=== PATIENT | female | born 1940 | race Caucasian/White ===

== ENCOUNTER 2018-06-08 16:17 | Emergency (ER) | payer MEDICARE, BC, SELFPAY ==
[2018-06-08 16:22] VITALS: BP 140/60; PULSE 71; RESP 18; TEMP 36.5; O2SAT 99; BMI 14.6
[2018-06-08 17:17] VITALS: BP 142/67; PULSE 64; RESP 14; O2SAT 100
[2018-06-08 17:49] LABS: Add Manual Diff / Slide Review NO; Basophils Percent Auto 0.3 % (0-2); Eosinophils Percent Auto 0.4 % (2-4); Hematocrit 34.9 % (36-46); Hemoglobin 12.3 g/dL (12.0-16.0); Lymphocytes Percent Auto 15.3 % (25-40); Mean Corpuscular HGB Conc 35.1 % (30-36); Mean Corpuscular Hemoglobin 34.8 PG (26-34); Mean Corpuscular Volume 99.1 fL (80-100); Monocytes Percent Auto 6.2 % (3-14); Neutrophils Absolute Auto 3100 /uL (3000-5900); Neutrophils Percent Auto 77.8 % (50-75); Platelet Count 243 X10^3/uL (150-400); Red Blood Cell Count 3.53 X10^6/uL (4.0-5.2); Red Cell Distribution Width 14.3 % (11.6-14.8)
[2018-06-08 17:51] LABS: Lactate (Lactic Acid) 0.8 mmol/L (0.7-2.1)
[2018-06-08 17:53] LABS: BUN Creatinine Ratio 24.3 (6-22); Blood Urea Nitrogen 17 mg/dL (7-17); Calcium 9.5 mg/dL (8.4-10.2); Carbon Dioxide 29 mmol/L (22-32); Chloride 93 mmol/L (98-107); Creatine Kinase 74 U/L (30-135); Estimated Glomerular Filt Rate > 60.0 mL/min (>60); Glucose 86 mg/dL (80-110); HEMOLYSIS < 15 (0-50); Magnesium 2.1 mg/dL (1.6-2.3); Potassium 4.6 mmol/L (3.4-5.1); Sodium 132 mmol/L (137-145)
[2018-06-08 18:04] LABS: Troponin I < 0.012 ng/mL (0.01-0.034)
[2018-06-08 18:14] LABS: Procalcitonin < 0.05 ng/mL (<0.5)
--- NOTE | 2018-06-08 18:37 | ED_ITS ---
HPI - SOB/Dyspnea General Chief Complaint: Shortness of Breath/Dyspnea Stated Complaint: SOB Time Seen by Provider: 06/08/18 18:24 Source: patient and family Mode of arrival: ambulatory Limitations: no limitations History of Present Illness Patient presents to the emergency department with a chief complaint of many weeks of shortness of breath, particularly with exertion and hiking. She denies any chest pain is not dizzy nor weak or lightheaded. She denies any orthopnea or weight gain. She is under the care of a cardiology group in [place] and had atenolol removed from her medication list in March due to frequent bouts of bradycardia MD Complaint: shortness of breath Onset (ago): month(s) Severity: mild Consistency/Duration: intermittent Relieving factors: nothing Exacerbating factors: exertion Related Data Home oxygen amount: none Review of Systems Review of Systems All systems reviewed & are unremarkable except as noted in HPI and below Constitutional Denies chills, Denies fever(s), Denies lethargy and Denies weakness Eyes Denies change in vision, Denies eye discharge, Denies irritation and Denies loss of vision ENT Ears, Nose, Mouth, and Throat: Denies change in voice, Denies neck pain and Denies sore throat Cardiovascular Denies chest pain, Denies irregular heart rhythm, Denies lightheadedness, Denies palpitations, Reports dyspnea, Denies dyspnea on exertion and Denies orthopnea Respiratory Denies cough, Reports dyspnea, Denies dyspnea on exertion and Denies wheezing Gastrointestinal Gastrointestinal: Denies abdominal pain, Denies change in bowel habits, Denies diarrhea, Denies nausea and Denies vomiting Genitourinary Denies hematuria, Denies flank pain, Denies urinary incontinence and Denies urinary urgency Musculoskeletal Denies neck pain Integumentary/Breasts Denies pruritus, Denies erythema, Denies rash and Denies wounds Neurologic Denies confusion, Denies loss of vision and Denies weakness Psychiatric Denies anxiety, Denies confusion, Denies depression, Denies homicidal ideation and Denies suicidal ideation Endocrine Denies palpitations Hematologic/Lymphatic Denies easy bruising Allergic/Immunologic Denies wheezing PFSH Social History Smoking Status: Never smoker Exam Narrative Exam Narrative: Pleasant 77-year-old female in no obvious distress, resting comfortably Initial Vital Signs Initial Vital Signs: Vital Signs Temperature 97.7 F 06/08/18 16:22 Pulse Rate 71 06/08/18 16:22 Respiratory Rate 18 06/08/18 16:22 Blood Pressure 140/60 H 06/08/18 16:22 Pulse Oximetry 99 06/08/18 16:22 Const General: cooperative and well developed Nutritional Appearance: well nourished Orientation: alert, awake, oriented x3 and not confused [facility] Head: normocephalic and atraumatic Ears: external ears normal and TM's normal bilaterally Nose: external nose normal and No nasal discharge Face and sinus: sinuses nontender, face symmetric, no sinus tenderness and No dry mucous membranes Mouth: oral mucosae normal and moist mucous membranes Teeth and gingiva: dentition normal Throat: tonsils normal and uvula midline Eyes General: appearance normal, both eyes and all related structures Eyelids: eyelids normal Conjunctivae: conjunctivae normal Sclera: sclerae normal Pupils: PERRL EOM: EOM intact bilaterally Neck Neck: normal visual inspection, trachea midline, No lymphadenopathy, No midline deformity and No JVD Lymphatic: No lymphedema Chest Chest: normal inspection of the chest Resp Effort & Inspection: normal respiratory effort, able to speak in complete sentences, no respiratory distress and no use of accessory muscles Auscultation: clear to auscultation bilaterally, no rales, no rhonchi and no wheezes Cardio Rate: regular rate Rhythm: regular rhythm Heart Sounds: no click, no gallops, no murmurs and no rubs Pulses: normal peripheral pulses GI Inspection: non-distended Palpation: soft, no hepatosplenomegaly, No guarding, No pulsatile mass and No tender Auscultation: normal bowel sounds Back/Spine/Pelvis Back: No CVA tenderness Cervical Spine: cervical ROM normal and No pain with cervical ROM Thoracic/Lumbar Spine: thoracic and lumbar spine normal to inspection Skin General: no rashes or lesions noted, No jaundice and No petechiae Neuro General: alert, oriented x3, gait normal and no focal motor deficits Speech: speech normal Extrem General: full ROM, no clubbing, cyanosis or edema, no pedal edema and no calf tenderness Psych Appearance: well kempt Mental Status: mental status grossly normal Attitude: cooperative Thought Content: normal and suicidality Judgment: judgment good Course Orders Ordered: Discontinued Medications Albuterol/Ipratropium (Duoneb) 3 ml INH NOW ONE Stop: 06/08/18 16:53 Last Admin: 06/08/18 17:00 Dose: Not Given Methylprednisolone (Solu-Medrol 125 Mg Vial) 125 mg IV NOW ONE Stop: 06/08/18 16:53 Last Admin: 06/08/18 17:00 Dose: Not Given Reevaluation(s) Reevaluation #1: She infrequently will have a heart rate drop into the upper 30s , we have evaluated multiple rhythm strips and 12 lead EKGs and all circumstances this is purely a sinus bradycardia without any evidence of block or other ominous finding. During these episodes the patient is completely asymptomatic and denies any dizziness, lightheadedness or shortness of breath. Consultations Consultation #1: I have discussed this case with on-call Cardiology and we sure the opinion that given the presence of a sinus bradycardia in the absence of any blocks or other ominous finding that the patient is perfectly fine and well to be discharged and encouraged to follow up closely with cardiology at home. She understands signs and symptoms that would dictate a prompt return such as dizziness, syncope, chest pain or other. Vital Signs - 8 hr 06/08/18 20:50 Pulse Rate 67 Respiratory Rate 12 Blood Pressure 178/73 H Pulse Oximetry 98 MDM - SOB/Dyspnea Differential Diagnosis Likely congestive heart failure Medical Records Attestation: I reviewed the patient's medical records. Lab Data Attestation: I reviewed the patient's lab results. Result diagrams: 06/08/18 17:26 06/08/18 17:26 Lab Results 06/08/18 06/08/18 06/08/18 Range/Units 17:26 17:26 17:26 WBC 4.0 L (4.5-11.0) X10^3/uL RBC 3.53 L (4.0-5.2) X10^6/uL Hgb 12.3 (12.0-16.0) g/dL Hct 34.9 L (36-46) % MCV 99.1 (80-100) fL MCH 34.8 H (26-34) PG MCHC 35.1 (30-36) % RDW 14.3 (11.6-14.8) % Plt Count 243 (150-400) X10^3/uL Neut % (Auto) 77.8 H (50-75) % Lymph % (Auto) 15.3 L (25-40) % [place] % (Auto) 6.2 (3-14) % Eos % (Auto) 0.4 L (2-4) % Baso % (Auto) 0.3 (0-2) % Neut # (Auto) 3100 (5020-3485) /uL Sodium 132 L (137-145) mmol/L Potassium 4.6 (3.4-5.1) mmol/L Chloride 93 L (98-107) mmol/L Carbon Dioxide 29 (22-32) mmol/L BUN 17 (7-17) mg/dL Creatinine 0.70 (0.52-1.04) mg/dL Estimated GFR > 60.0 (>60) mL/min BUN/Creatinine Ratio 24.3 H (6-22) Glucose 86 (80-110) mg/dL Lactate (0.7-2.1) mmol/L Calcium 9.5 (8.4-10.2) mg/dL Magnesium 2.1 (1.6-2.3) mg/dL Total Creatine Kinase 74 (30-135) U/L Troponin I < 0.012 (0.01-0.034) ng/mL B-Natriuretic Peptide 323.0 H (<100) Procalcitonin < 0.05 (<0.5) ng/mL 06/08/18 Range/Units 17:26 WBC (4.5-11.0) X10^3/uL RBC (4.0-5.2) X10^6/uL Hgb (12.0-16.0) g/dL Hct (36-46) % MCV (80-100) fL MCH (26-34) PG MCHC (30-36) % RDW (11.6-14.8) % Plt Count (150-400) X10^3/uL Neut % (Auto) (50-75) % Lymph % (Auto) (25-40) % [place] % (Auto) (3-14) % Eos % (Auto) (2-4) % Baso % (Auto) (0-2) % Neut # (Auto) (8634-4195) /uL Sodium (137-145) mmol/L Potassium (3.4-5.1) mmol/L Chloride (98-107) mmol/L Carbon Dioxide (22-32) mmol/L BUN (7-17) mg/dL Creatinine (0.52-1.04) mg/dL Estimated GFR (>60) mL/min BUN/Creatinine Ratio (6-22) Glucose (80-110) mg/dL Lactate 0.8 (0.7-2.1) mmol/L Calcium (8.4-10.2) mg/dL Magnesium (1.6-2.3) mg/dL Total Creatine Kinase (30-135) U/L Troponin I (0.01-0.034) ng/mL B-Natriuretic Peptide (<100) Procalcitonin (<0.5) ng/mL Imaging Data Chest x-ray: Radiologist's impression: PROCEDURE: XR CHEST 2V INDICATIONS: SHORTNESS OF BREATH TECHNIQUE: 2 views of the chest were acquired. COMPARISON: None. FINDINGS: Surgical changes and devices: None. Lungs and pleura: No pleural effusions or pneumothorax. Hyperexpansion and chronic interstitial changes. Mediastinum: Mediastinal contours are normal. Heart size is normal. Bones and chest wall: No suspicious bony abnormalities. Soft tissues appear unremarkable. IMPRESSION: No acute pulmonary process. Hyperexpansion suggestive of COPD. Dictated by: Tigist Judge M.D. on 06/08/2018 at 20:15 Approved by: Tigist Judge M.D. on 06/08/2018 at 20:15 ECG Data Attestation: I personally reviewed and interpreted this ECG as follows: Prior ECG tracings: not available for review Interpretation: EKG: NSR in 50-60s without ST change or T wave inversion. No ectopy MDM Narrative Medical decision making narrative: Patient complains of shortness of breath with exertion and is absence of other symptoms. She has some clinical findings suggestive of mild CHF including faint crackles in her bases and an elevated BNP. She has a history of being on amiloride given allergies to other diuretics but has not been on it recently. Furthermore her brief episodes of bradycardia have been intensely reviewed and are sinus and all circumstances in the absence of any blocks. Cardiology and I feel she is safe for discharge with encouragement to follow up and re-initiation of her amiloride Critical Care Time Critical Care Time: No Attestation: The high probability of a clinically significant, sudden or life threatening deterioration of the [] system(s) required my full and direct attention, intervention and personal management. The aggregate critical care time was [] minutes. This time is in addition to time spent performing reported procedures but includes the following: [] Data Review and interpretation [] Patient assessment and monitoring of vital signs [] Documentation [] Medication orders and management Discharge Plan Departure Patient Disposition: Home, Self-Care Clinical Impression: Bradycardia Discharge Date/Time: 06/08/18 20:50 Interventions: ED Discharge Assessment Last Done: 06/08/18 20:50 Instructions: DI for Heart Failure Activity Restrictions/Additional Instructions: *You have been diagnosed with [acute CHF, asymptomatic bradycardia ] *What to do: *Take medications as directed *Follow up with your primary care provider in 2-3 days, call for an appointment. Let them know you were seen in the Emergency Department and that we ask that you be seen in follow up *Return to ER if you should have any new, worsening or concerning symptoms , such as [ dizziness, lightheadedness, shortness of breath while at rest, fainting, chest pain or other bothersome symptoms]
[2018-06-08 20:26] VITALS: PULSE 61; RESP 14; O2SAT 98
[2018-06-08 20:50] VITALS: BP 178/73; PULSE 67; RESP 12; O2SAT 98
== END 2018-06-08 20:50 | disposition home or self-care (01) ==
PROVIDERS: Emergency Medicine; Emergency Provider Emergency Medicine
DX: R00.1 Bradycardia, unspecified (principal); R06.02 Shortness of breath
CPT/HCPCS: 36591; 71046; 80048; 81003; 82550; 82553; 83605; 83735; 83880; 84145; 84484; 85025; 87040; 93005; 93041; 99283; 99285